=== PATIENT | female | born 1965 | race African-American/Black ===

== ENCOUNTER 2017-10-09 19:43 | Emergency (ER) | payer OTHER ==
[~2017-10-09] VITALS: Ht 160 cm; Wt 117.9 kg
[~2017-10-09 19:43] MED LIST: ALBUTEROL SULF8.5 GM INH; ATARAX50 MG ORAL; AZMACORT PO; CLINDAMYCIN HC150 MG ORAL; COUMADIN2.5 MG ORAL; CYCLOBENZAPRINE10 MG ORAL; DOXYCYCLINE HY100 M6 PO; FUROSEMIDE20 M1 ORAL; K-DUR20 MEQ ORAL; LOVENOX10 MG SUBQ; NORCO 5-325 TA1 EACH ORAL; PREDNISONE2.5 MG ORAL; SILVADENE CREAM50 GM TOP; SOMA350 MG PO; VICODIN ES 7.51 EAC1 ORAL; VITAMIN E100 UNIT ORAL; [UNRECOGNIZED DRUG - OTHER] PO
[2017-10-09] MEDS ORDERED: Sodium Chloride 500ML 500 ML IV ONE (20:07)
[2017-10-09] MEDS ORDERED: Morphine Sulfate 4mg/ml Inj IVP ONE ×2 (20:15→21:30)
[2017-10-09 21:07] LABS: BASOPHILS % (AUTO) 1.5 % (0.0-2.0); EOSINOPHILS % (AUTO) 1.8 % (0.0-3.0); HEMATOCRIT 38.8 % (37.0-47.0); HEMOGLOBIN 10.6 G/DL (12.0-16.0); LYMPHOCYTES % (AUTO) 21.1 % (20.0-45.0); MEAN CORPUSCULAR VOLUME 85 FL (80-99); MONOCYTES % (AUTO) 5.5 % (1.0-10.0); NEUTROPHILS % (AUTO) 70.1 % (45.0-75.0); PLATELET COUNT 341 K/UL (150-450); RED BLOOD COUNT 4.58 M/UL (4.20-5.40); WHITE BLOOD COUNT 7.7 K/UL (4.8-10.8)
[2017-10-09 21:23] LABS: ANION GAP 9 mmol/L (5-15); BLOOD UREA NITROGEN 17 mg/dL (7-18); CALCIUM 9.9 MG/DL (8.5-10.1); CARBON DIOXIDE 24 MMOL/L (21-32); CHLORIDE 100 MMOL/L (98-107); CREATININE 0.9 MG/DL (0.55-1.30); INR 0.9 (0.9-1.1); POTASSIUM 3.6 MMOL/L (3.5-5.1); SODIUM 133 MMOL/L (136-145)
[2017-10-09 21:57] LABS: ALANINE AMINOTRANSFERASE 17 U/L (12-78); ALBUMIN 3.8 G/DL (3.4-5.0); ALBUMIN/GLOBULIN RATIO 0.7 (1.0-2.7); ALKALINE PHOSPHATASE 84 U/L (46-116); ASPARTATE AMINO TRANSFERASE 13 U/L (15-37); BILIRUBIN,TOTAL 0.3 MG/DL (0.2-1.0); CKMB 0.5 NG/ML (0.0-3.6); CREATINE KINASE 46 U/L (26-308)
--- NOTE | 2017-10-09 22:32 | Emergency Room Report ---
History of Present Illness General Chief Complaint: Abdominal Pain Source: Patient (ISH BARKLEY M.D.) Present Illness HPI 52-year-old female presents ED complaining of abdominal pain and back pain starting 7 hours ago. Notes pain to right upper quadrant radiating to the back. 10/, sharp. Patient also complaining of shortness of breath. Patient has history of lupus and history of PE. Denies any chest pain. Denies any fevers chills. Denies nausea or vomiting. No other aggravating or leading factors. Denies any other associated symptoms (ISH BARKLEY M.D.) Allergies: Coded Allergies: PENICILLINS (Verified Allergy, Severe, Shortness of Breath, 10/09/17) Patient History Past Medical History: asthma, other - lupus Pertinent Family History: none Social History: Denies: smoking, alcohol use, drug use Last Menstrual Period: now Now: No Immunizations: UTD Reviewed Nursing Documentation: PMH: Agreed, PSxH: Agreed (ISH BARKLEY M.D.) Nursing Documentation-PMH Past Medical History: No History, Except For Hx Cardiac Problems: No Hx Asthma: Yes Hx Neurological Problems: Yes - SLE (ISH BARKLEY M.D.) Review of Systems All Other Systems: negative except mentioned in HPI (ISH BARKLEY M.D.) Physical Exam Vital Signs Date Time Temp Pulse Resp B/P (MAP) Pulse Ox O2 Delivery O2 Flow Rate FiO2 10/09/17 19:48 97.9 77 16 134/72 100 Sp02 EP Interpretation: reviewed, normal General Appearance: alert, GCS 15, non-toxic, moderate distress, obese Head: normocephalic, atraumatic Eyes: bilateral eye normal inspection, bilateral eye PERRL ENT: hearing grossly normal, normal pharynx, no angioedema, normal voice Neck: full range of motion, supple/symm/no masses Respiratory: chest non-tender, lungs clear, normal breath sounds, speaking full sentences Cardiovascular #1: regular rate, rhythm, no edema Cardiovascular #2: 2+ carotid (R), 2+ carotid (L), 2+ radial (R), 2+ radial (L) , 2+ dorsalis pedis (R), 2+ dorsalis pedis (L) Gastrointestinal: normal bowel sounds, soft, non-distended, no guarding, no rebound, tenderness - RUQ Rectal: deferred Genitourinary: normal inspection, no CVA tenderness Musculoskeletal: back normal, gait/station normal, normal range of motion, non- tender Neurologic: alert, oriented x3, responsive, motor strength/tone normal, sensory intact, speech normal Psychiatric: judgement/insight normal, memory normal, mood/affect normal, no suicidal/homicidal ideation Reflexes: 3+ bicep (R), 3+ bicep (L), 3+ tricep (R), 3+ tricep (L), 3+ knee (R) , 3+ knee (L) Skin: normal color, no rash, warm/dry, well hydrated Lymphatic: no adenopathy (ISH BARKLEY M.D.) Medical Decision Making Labs Test 10/09/17 20:54 White Blood Count 7.7 K/UL (4.8-10.8) Red Blood Count 4.58 M/UL (4.20-5.40) Hemoglobin 10.6 G/DL (12.0-16.0) Hematocrit 38.8 % (37.0-47.0) Mean Corpuscular Volume 85 FL (80-99) Mean Corpuscular Hemoglobin 23.2 PG (27.0-31.0) Mean Corpuscular Hemoglobin Concent 27.4 G/DL (32.0-36.0) Red Cell Distribution Width 17.0 % (11.6-14.8) Platelet Count 341 K/UL (150-450) Mean Platelet Volume 7.0 FL (6.5-10.1) Neutrophils (%) (Auto) 70.1 % (45.0-75.0) Lymphocytes (%) (Auto) 21.1 % (20.0-45.0) Monocytes (%) (Auto) 5.5 % (1.0-10.0) Eosinophils (%) (Auto) 1.8 % (0.0-3.0) Basophils (%) (Auto) 1.5 % (0.0-2.0) Prothrombin Time 9.5 SEC (9.30-11.50) Prothromb Time International Ratio 0.9 (0.9-1.1) Activated Partial Thromboplast Time 25 SEC (23-33) Sodium Level 133 MMOL/L (136-145) Potassium Level 3.6 MMOL/L (3.5-5.1) Chloride Level 100 MMOL/L (98-107) Carbon Dioxide Level 24 MMOL/L (21-32) Anion Gap 9 mmol/L (5-15) Blood Urea Nitrogen 17 mg/dL (7-18) Creatinine 0.9 MG/DL (0.55-1.30) Estimat Glomerular Filtration Rate > 60 mL/min (>60) Glucose Level 104 MG/DL (74-106) Calcium Level 9.9 MG/DL (8.5-10.1) Total Bilirubin 0.3 MG/DL (0.2-1.0) Aspartate Amino Transf (AST/SGOT) 13 U/L (15-37) Alanine Aminotransferase (ALT/SGPT) 17 U/L (12-78) Alkaline Phosphatase 84 U/L (46-116) Total Creatine Kinase 46 U/L (26-308) Creatine Kinase MB 0.5 NG/ML (0.0-3.6) Creatine Kinase MB Relative Index 1.0 Troponin I 0.000 ng/mL (0.000-0.056) Pro-B-Type Natriuretic Peptide 17 pg/mL (0-125) Total Protein 9.1 G/DL (6.4-8.2) Albumin 3.8 G/DL (3.4-5.0) Globulin 5.3 g/dL Albumin/Globulin Ratio 0.7 (1.0-2.7) Lipase 190 U/L (73-393) (ISH BARKLEY M.D.) ER Course CTA CHEST: CTA ABDOMEN & PELVIS With Contrast: Comparison CTA chest 12/09/13. Normal caliber aorta without evidence for dissection. Cholelithiasis within distended gallbladder. Consider correlation with ultrasound, as indicated. Limited for small peripheral PE. No central PE. Mild atelectasis. No infiltrate seen. Incidental findings include enlarged fibroid uterus. Patient was tx with morphine, has been stable during ED stay labs unremarkable Will dc home with motrin and OBGYN follow up for large fibroid uterus Laboratory Tests Test 10/09/17 20:54 White Blood Count 7.7 K/UL (4.8-10.8) Red Blood Count 4.58 M/UL (4.20-5.40) Hemoglobin 10.6 G/DL (12.0-16.0) L Hematocrit 38.8 % (37.0-47.0) Mean Corpuscular Volume 85 FL (80-99) Mean Corpuscular Hemoglobin 23.2 PG (27.0-31.0) L Mean Corpuscular Hemoglobin Concent 27.4 G/DL (32.0-36.0) L Red Cell Distribution Width 17.0 % (11.6-14.8) H Platelet Count 341 K/UL (150-450) Mean Platelet Volume 7.0 FL (6.5-10.1) Neutrophils (%) (Auto) 70.1 % (45.0-75.0) Lymphocytes (%) (Auto) 21.1 % (20.0-45.0) Monocytes (%) (Auto) 5.5 % (1.0-10.0) Eosinophils (%) (Auto) 1.8 % (0.0-3.0) Basophils (%) (Auto) 1.5 % (0.0-2.0) Prothrombin Time 9.5 SEC (9.30-11.50) Prothrombin Time INR 0.9 (0.9-1.1) PTT 25 SEC (23-33) Sodium Level 133 MMOL/L (136-145) L Potassium Level 3.6 MMOL/L (3.5-5.1) Chloride Level 100 MMOL/L (98-107) Carbon Dioxide Level 24 MMOL/L (21-32) Anion Gap 9 mmol/L (5-15) Blood Urea Nitrogen 17 mg/dL (7-18) Creatinine 0.9 MG/DL (0.55-1.30) Estimate Glomerular Filtration Rate > 60 mL/min (>60) Glucose Level 104 MG/DL (74-106) Calcium Level 9.9 MG/DL (8.5-10.1) Total Bilirubin 0.3 MG/DL (0.2-1.0) Aspartate Amino Transferase (AST) 13 U/L (15-37) L Alanine Aminotransferase (ALT) 17 U/L (12-78) Alkaline Phosphatase 84 U/L (46-116) Total Creatine Kinase 46 U/L (26-308) Creatine Kinase MB 0.5 NG/ML (0.0-3.6) Creatine Kinase MB Relative Index 1.0 Troponin I 0.000 ng/mL (0.000-0.056) Pro-B-Type Natriuretic Peptide 17 pg/mL (0-125) Total Protein 9.1 G/DL (6.4-8.2) H Albumin 3.8 G/DL (3.4-5.0) Globulin 5.3 g/dL Albumin/Globulin Ratio 0.7 (1.0-2.7) L Lipase 190 U/L (73-393) (Jose Molina M.D.) EKG Diagnostic Results Rate: normal Rhythm: NSR ST Segments: no acute changes ASA given to the pt in ED: No (ISH BARKLEY M.D.) Rhythm Strip Diag. Results EP Interpretation: yes Rhythm: NSR, no PVC's, no ectopy (ISH BARKLEY M.D.) Last Vital Signs Date Time Temp Pulse Resp B/P (MAP) Pulse Ox O2 Delivery O2 Flow Rate FiO2 10/09/17 20:56 97.8 10/09/17 19:48 77 16 134/72 100 Status: improved (ISH BARKLEY M.D.) ISH BARKLEY M.D. Oct 09, 2017 22:32 Jose Molina M.D. Oct 10, 2017 02:39
[2017-10-09 23:00] VITALS: BP 127/73
[2017-10-10] MEDS ORDERED: Morphine Sulfate 4mg/ml Inj IVP ONE (00:45)
[2017-10-10 01:00] VITALS: BP 119/73
[2017-10-10 03:45] VITALS: BP 117/68
[2017-10-10] MEDS ORDERED: TYLENOL EXTRA500 MG ORAL (03:58)
[2017-10-10 04:00] VITALS: BP 117/68
--- NOTE | 2017-10-10 09:15 | Diagnostic Imaging Report ---
Indication: Chest and abdominal pain Technique: Continuous helical transaxial imaging of the chest, abdomen and pelvis was obtained from the thoracic inlet to the pubic symphysis during rapid intravenous contrast administration. Arterial phase of enhancement obtained. Coronal 2-D reformats were also obtained and maximum intensity projection images in multiple planes. Study obtained in a Siemens sensation [address] Total Dose length Product (DLP): [address] Dose Index Volume (CTDIvol): 0.15, 8.11, 16.22, 17.67 mGy Comparison: CTA chest 12/02/1713 Findings: Thoracic and abdominal aorta appear normal. There is no dissection or aneurysm. Common origin brachiocephalic artery and left common carotid artery noted. Left subclavian artery noted. These vessels are widely patent. Celiac artery, SMA, single bilateral renal arteries and inferior mesenteric artery appear widely patent. Iliac and common femoral artery appear normal. The lungs are clear. The heart is unremarkable in appearance. Pulmonary artery is unremarkable. No pleural or pericardial effusion identified. Gallstone noted. No free fluid or free air identified. There is no evidence of bowel obstruction. Uterus is enlarged and heterogeneous likely on the basis of underlying fibroids. IMPRESSION: Negative evaluation of the thoracic and abdominal aorta and major branches. Incidental findings including gallstones, fibroid uterus demonstrated. [facility] has communicated the preliminary results to the Emergency Department. Their findings are largely concordant with this report. The CT scanner at [facility] is accredited by the [employer] and the scans are performed using dose optimization techniques as appropriate to a performed exam including Automatic Exposure control.
--- NOTE | 2017-10-21 00:11 | Cardiology Report ---
APPROVED REPORT EKG Measurement Heart [id number] Normal sinus rhythm with sinus arrhythmia Normal ECG
== END 2017-10-10 04:00 | disposition home or self-care (01) ==
LOC: EMR 20:30
DX: R10.9 Unspecified abdominal pain (principal); M54.9 Dorsalgia, unspecified; J45.909 Unspecified asthma, uncomplicated; M32.9 Systemic lupus erythematosus, unspecified; D25.9 Leiomyoma of uterus, unspecified; K80.20 Calculus of gallbladder without cholecystitis without obstruction; Z88.0 Allergy status to penicillin
CPT/HCPCS: 36415; 71275; 74174; 80053; 82550; 82553; 83690; 83880; 84484; 85025; 85610; 85730; 93005; 96361; 96374; 96376; 99284; J2270; J7040; Q9967

== ENCOUNTER 2018-12-24 10:38 | Emergency (ER) | payer OTHER ==
[~2018-12-24] VITALS: Ht 160 cm; Wt 115.7 kg
[~2018-12-24 10:38] MED LIST changes: +TYLENOL EXTRA500 MG ORAL
[2018-12-24 10:55] VITALS: BP 129/100
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
[2018-12-24] MEDS ORDERED: Solu-MEDROL 125mg Inj IVP ONE (11:00)
[2018-12-24] MEDS ORDERED: Isovue-370 150ml vial INJ PRN (11:00)
[2018-12-24] MEDS ORDERED: Morphine Sulfate 4mg/ml Inj (IV USE ONLY) IVP ONE ×2 (11:00→13:00)
[2018-12-24] MEDS: Ipratropium 0.02% Inh Soln 2.5ml UD HHN SCH ×3 (11:04→11:30)
[2018-12-24] MEDS: Albuterol ud Inhalation HHN SCH ×3 (11:04→11:30)
--- NOTE | 2018-12-24 11:10 | NUR ---
ED Nurse Note: blood sent to lab
[2018-12-24 11:31] LABS: BASOPHILS % (AUTO) 1.8 % (0.0-2.0); EOSINOPHILS % (AUTO) 5.2 % (0.0-3.0); HEMATOCRIT 37.2 % (37.0-47.0); HEMOGLOBIN 11.2 G/DL (12.0-16.0); LYMPHOCYTES % (AUTO) 22.5 % (20.0-45.0); MEAN CORPUSCULAR VOLUME 86 FL (80-99); MONOCYTES % (AUTO) 7.4 % (1.0-10.0); PLATELET COUNT 247 K/UL (150-450); RED BLOOD COUNT 4.33 M/UL (4.20-5.40); RED CELL DISTRIBUTION WIDTH 17.3 % (11.6-14.8); WHITE BLOOD COUNT 4.9 K/UL (4.8-10.8)
[2018-12-24 11:51] LABS: ANION GAP 10 mmol/L (5-15); BLOOD UREA NITROGEN 11 mg/dL (7-18); CALCIUM 10.4 MG/DL (8.5-10.1); CARBON DIOXIDE 23 MMOL/L (21-32); CHLORIDE 104 MMOL/L (98-107); CREATININE 0.8 MG/DL (0.55-1.30); POTASSIUM 3.7 MMOL/L (3.5-5.1); SODIUM 137 MMOL/L (136-145)
[2018-12-24 12:00] VITALS: BP 129/100
[2018-12-24 12:06] LABS: ALANINE AMINOTRANSFERASE 32 U/L (12-78); ALBUMIN 3.2 G/DL (3.4-5.0); ALBUMIN/GLOBULIN RATIO 0.7 (1.0-2.7); ALKALINE PHOSPHATASE 77 U/L (46-116); ASPARTATE AMINO TRANSFERASE 15 U/L (15-37); BILIRUBIN,TOTAL 0.3 MG/DL (0.2-1.0); CKMB 0.5 NG/ML (0.0-3.6); CREATINE KINASE 50 U/L (26-308)
--- NOTE | 2018-12-24 12:10 | NUR ---
ED Nurse Note: patient went down for CT
--- NOTE | 2018-12-24 12:22 | NUR ---
ED Nurse Note: patient is back, no acute disstress noticed
--- NOTE | 2018-12-24 12:45 | Diagnostic Imaging Report ---
ndication: Chest pain Technique: IV administration nonionic contrast. Spiral acquisitions obtained from the lung bases to the lung apices. Multiplanar and 3-D reconstructions were generated. Total dose length product 1179.3 mGycm. CTDIvol(s) 34.86 mGy. Dose reduction achieved using automated exposure control Comparison: 10/09/2017 Findings: Exam is limited due to suboptimal arterial bolus quality, respiratory motion artifact. This precludes exclusion of small peripheral pulmonary emboli. No large central pulmonary emboli are demonstrated. No evidence of pulmonary arterial dilatation or right ventricular dilatation. The heart size is borderline enlarged. No thoracic aortic aneurysm or dissection. There is common origin of the left common carotid and right brachiocephalic artery, otherwise unremarkable great neck vessels. The lungs demonstrate posterior dependent atelectatic changes. Some very faint groundglass opacity is seen in the left upper lobe and bilateral lower lobes. This is a new finding since the prior study. No pleural fluid is demonstrated. No dense consolidation, no definite nodules or masses. No pericardial effusion. No mediastinal or hilar mass or adenopathy. No axillary or chest wall mass or adenopathy. Unremarkable esophagus. The included upper abdominal anatomy demonstrates gallstones. This was also described previously. Impression: Limited assessment of the pulmonary arteries due to suboptimal contrast bolus and respiratory motion artifact. No gross large vessel central pulmonary emboli demonstrated Bilateral basilar dependent atelectatic changes. Left upper lobe and bilateral basilar groundglass opacities may reflect very mild pulmonary edema Borderline cardiomegaly Cholelithiasis, also described previously The CT scanner at [facility] is accredited by the [employer] and the scans are performed using protocols designed to limit radiation exposure to as low as reasonably achievable to attain images of sufficient resolution adequate for diagnostic evaluation.
[2018-12-24] MEDS ORDERED: Albuterol ud Inhalation HHN ONE (13:00)
[2018-12-24] MEDS ORDERED: Ipratropium 0.02% Inh Soln 2.5ml UD HHN ONE (13:00)
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
[2018-12-24 14:43] VITALS: BP 130/80
[2018-12-24] MEDS ORDERED: COLACE100 MG ORAL (14:51)
[2018-12-24] MEDS ORDERED: ASPIRIN-LOW81 MG ORAL (14:51)
[2018-12-24] MEDS ORDERED: ALBUTEROL2.5 MG/3 M HHN (14:51)
[2018-12-24] MEDS ORDERED: PREDNISONE20 MG ORAL (14:51)
[2018-12-24] MEDS ORDERED: PEPCID AC20 M2 PO (14:51)
[2018-12-24] MEDS ORDERED: ALBUTEROL SULF8.5 GM INH (14:51)
[2018-12-24] MEDS ORDERED: FUROSEMIDE40 MG ORAL (14:51)
[2018-12-24] MEDS ORDERED: IPRATROPIU0.2 MG/1 M HHN (14:51)
[2018-12-24] MEDS ORDERED: HYDROXYCHLOROQ200 M1 PO (14:51)
[2018-12-24] MEDS ORDERED: COUMADIN5 MG ORAL (14:51)
[2018-12-24] MEDS ORDERED: CYCLOBENZAPRINE10 MG ORAL (14:51)
[2018-12-24] MEDS ORDERED: ATORVASTATIN CA10 MG ORAL (14:51)
[2018-12-24 15:19] VITALS: BP 134/76
--- NOTE | 2018-12-24 15:21 | NUR ---
ER DISCHARGE NOTE: Patient is cleared to be discharged per ERMD, pt is aox4, on room air, with stable vital signs. pt was given dc and prescription instructions, pt was able to verbalize understanding, pt id band and iv site removed without complications. pt is able to ambulate with steady gait. pt took all belongings.
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
== END 2018-12-24 15:40 | disposition home or self-care (01) ==
LOC: EMR 11:12
DX: J45.901 Unspecified asthma with (acute) exacerbation (principal); R07.9 Chest pain, unspecified; M32.9 Systemic lupus erythematosus, unspecified; Z88.0 Allergy status to penicillin
CPT/HCPCS: 36415; 70486; 71275; 80053; 82550; 82553; 83880; 84484; 85025; 93005; 94640; 96374; 96375; 96376; 99284; J2270; J2930; Q9967

== ENCOUNTER 2019-05-18 16:38 | Emergency (ER) | payer OTHER ==
[~2019-05-18] VITALS: Ht 167.6 cm; Wt 119.3 kg
[~2019-05-18 16:38] MED LIST changes: +ALBUTEROL2.5 MG/3 M HHN; +ASPIRIN-LOW81 MG ORAL; +ATORVASTATIN CA10 MG ORAL; +COLACE100 MG ORAL; +COUMADIN5 MG ORAL; +FUROSEMIDE40 MG ORAL; +HYDROXYCHLOROQ200 M1 PO; +IPRATROPIU0.2 MG/1 M HHN; +PEPCID AC20 M2 PO; +PREDNISONE20 MG ORAL
--- NOTE | 2019-05-18 17:02 | NUR ---
Note undone in EDM - 05/18/19 at 1704 by JARROD ED Nurse Note: PT WALKED IN TO ER TODAY FROM HOME. AOX4. PT C/O SOB X 3 DAYS ALONG WITH BILATERAL LEG PAIN BEHIND CALF, PAIN 10/10 X 3 DAYS AGO. PT STATES SHE HAS HX OF PE AND DVT IN RIGHT LEG. AT BEDSIDE, PT ABLE TO SPEAK IN FULL SENTENCES. NO SIGNS OF RESPIRATORY DISTRESS, RETRACTIONS OR ACCESSORY MUSCLE USE NOTED. FULL ROM OF LOWER EXTREMITIES, CIRCULATION AND SENSATION INTACT, MUSCLE STRENGHT 5/5.
--- NOTE | 2019-05-18 17:02 | NUR ---
ED Nurse Note: PT WALKED IN TO ER TODAY FROM HOME. AOX4. PT C/O SOB X 3 DAYS ALONG WITH BILATERAL LEG PAIN BEHIND CALF, PAIN 10/10 X 3 DAYS AGO. PT STATES SHE HAS HX OF PE AND DVT IN RIGHT LEG. AT BEDSIDE, PT ABLE TO SPEAK IN FULL SENTENCES. NO SIGNS OF RESPIRATORY DISTRESS, RETRACTIONS OR ACCESSORY MUSCLE USE NOTED. FULL ROM OF LOWER EXTREMITIES, CIRCULATION AND SENSATION INTACT, MUSCLE STRENGHT 5/5. HR 86, BP 118/61, NORMAL SINUS RHYTHM ON SUPERINTENDENT FACTORY.
[2019-05-18 17:04] VITALS: BP 118/61
--- NOTE | 2019-05-18 17:12 | NUR ---
ED Nurse Note: RT CALLED FOR BREATHING TX.
[2019-05-18] MEDS ORDERED: Solu-MEDROL 125mg Inj IVP ONE (17:15)
[2019-05-18] MEDS ORDERED: Morphine Sulfate 4mg/ml Inj (IV USE ONLY) IVP ONE ×2 (17:30→19:15)
[2019-05-18] MEDS: Ipratropium 0.02% Inh Soln 2.5ml UD HHN SCH ×3 (17:36→18:12)
[2019-05-18] MEDS: Albuterol ud Inhalation HHN SCH ×3 (17:36→18:11)
[2019-05-18 18:10] LABS: BASOPHILS % (AUTO) 1.9 % (0.0-2.0); EOSINOPHILS % (AUTO) 4.1 % (0.0-3.0); HEMOGLOBIN 10.3 G/DL (12.0-16.0); LYMPHOCYTES % (AUTO) 26.3 % (20.0-45.0); MEAN CORPUSCULAR VOLUME 82 FL (80-99); MONOCYTES % (AUTO) 5.2 % (1.0-10.0); NEUTROPHILS % (AUTO) 62.6 % (45.0-75.0); PLATELET COUNT 183 K/UL (150-450); RED BLOOD COUNT 4.13 M/UL (4.20-5.40); WHITE BLOOD COUNT 5.1 K/UL (4.8-10.8)
[2019-05-18 18:10] LABS: INR 0.9 (0.9-1.1)
--- NOTE | 2019-05-18 18:11 | NUR ---
ED Nurse Note: ULTRASOUND AT BEDSIDE.
[2019-05-18 18:22] LABS: ANION GAP 10 mmol/L (5-15); BLOOD UREA NITROGEN 14 mg/dL (7-18); CALCIUM 10.8 MG/DL (8.5-10.1); CARBON DIOXIDE 24 MMOL/L (21-32); CHLORIDE 108 MMOL/L (98-107); CREATININE 0.8 MG/DL (0.55-1.30); POTASSIUM 3.8 MMOL/L (3.5-5.1); SODIUM 142 MMOL/L (136-145)
[2019-05-18 18:33] LABS: ALANINE AMINOTRANSFERASE 23 U/L (12-78); ALBUMIN 3.4 G/DL (3.4-5.0); ALBUMIN/GLOBULIN RATIO 0.7 (1.0-2.7); ALKALINE PHOSPHATASE 86 U/L (46-116); ASPARTATE AMINO TRANSFERASE 21 U/L (15-37); BILIRUBIN,TOTAL 0.3 MG/DL (0.2-1.0)
--- NOTE | 2019-05-18 18:39 | NUR ---
ED Nurse Note: URINE COLLECTED AND SENT TO LAB.
[2019-05-18 18:59] LABS: APPEARANCE,URINE CLEAR; BILIRUBIN, URINE NEGATIVE (NEGATIVE); COLOR,URINE PALE YELLOW; GLUCOSE, URINE (UA) NEGATIVE (NEGATIVE); KETONES,URINE NEGATIVE (NEGATIVE); LEUKOCYTE ESTERASE ,URINE NEGATIVE (NEGATIVE); NITRITE,URINE NEGATIVE (NEGATIVE); PH,URINE 5 (4.5-8.0); PROTEIN,URINE NEGATIVE (NEGATIVE); UROBILINOGEN,URINE NORMAL MG/DL (0.0-1.0)
--- NOTE | 2019-05-18 19:12 | NUR ---
ED Nurse Note: REPORT GIVEN TO [facility] PLUMMER.
--- NOTE | 2019-05-18 19:15 | Emergency Room Report ---
History of Present Illness General Chief Complaint: General Complaint Source: Patient Present Illness HPI 53-year-old female presents ED for evaluation. Complaining of shortness of breath. History of asthma. States that she ran out of her medications 3 days ago. Notes wheezing. Denies cough. Denies chest pain. Denies fevers or chills. Also complaining of pain to her lower legs. History of lupus. History of DVT. Takes Coumadin. States that this may be a lupus flare. No other aggravating relieving factors. Denies any other associated symptoms Allergies: Coded Allergies: PENICILLINS (Verified Allergy, Severe, Shortness of Breath, 10/09/17) Patient History Past Medical History: asthma, other - lupus Past Surgical History: none Pertinent Family History: none Social History: Denies: smoking, alcohol use, drug use Last Menstrual Period: 03/26/2019 Now: No Immunizations: UTD Reviewed Nursing Documentation: PMH: Agreed; PSxH: Agreed Nursing Documentation-PMH Past Medical History: No History, Except For Hx Cardiac Problems: No Hx Asthma: Yes Hx Neurological Problems: Yes - SLE Review of Systems All Other Systems: negative except mentioned in HPI Physical Exam Vital Signs Date Time Temp Pulse Resp B/P (MAP) Pulse Ox O2 Delivery O2 Flow Rate FiO2 05/18/19 16:49 97.9 86 20 120/81 (94) 95 Room Air 05/18/19 17:39 21 Sp02 EP Interpretation: reviewed, normal General Appearance: alert, GCS 15, non-toxic, obese Head: normocephalic, atraumatic Eyes: bilateral eye normal inspection, bilateral eye PERRL ENT: hearing grossly normal, normal pharynx, no angioedema, normal voice Neck: full range of motion, supple/symm/no masses Respiratory: chest non-tender, normal breath sounds, speaking full sentences, wheezing Cardiovascular #1: regular rate, rhythm, no edema Cardiovascular #2: 2+ carotid (R), 2+ carotid (L), 2+ radial (R), 2+ radial (L) , 2+ dorsalis pedis (R), 2+ dorsalis pedis (L) Gastrointestinal: normal bowel sounds, non tender, soft, non-distended, no guarding, no rebound Rectal: deferred Genitourinary: normal inspection, no CVA tenderness Musculoskeletal: back normal, gait/station normal, normal range of motion, swelling - bilateral lower extremities Neurologic: alert, oriented x3, responsive, motor strength/tone normal, sensory intact, speech normal Psychiatric: judgement/insight normal, memory normal, mood/affect normal, no suicidal/homicidal ideation Reflexes: 3+ bicep (R), 3+ bicep (L), 3+ tricep (R), 3+ tricep (L), 3+ knee (R) , 3+ knee (L) Skin: no rash Lymphatic: no adenopathy Medical Decision Making Diagnostic Impression: Primary Impression: Asthma exacerbation Qualified Codes: J45.901 - Unspecified asthma with (acute) exacerbation Additional Impression: Lupus ER Course Hospital Course 53 yo F presents with SOB. h/o asthma. leg pain. h/o lupus and DVT Differential diagnoses include: URI, bronchitis, asthma/COPD, pneumonia Clinical course Patient placed on stretcher. After initial history, physical exam reveals an obese female in no acute distress. Bilateral TM unremarkable. No pharyngeal erythema. No tonsillar exudates. No lymphadenopathy. wheezin bialterally. LE swelling I ordered labs, IV fluids, nebs, pain meds, chest x-ray, venous duplex Labs reviewed-no leukocytosis, hemoglobin/hematocrit stable, electrolytes okay Chest x-ray no acute process EKG - NSR, no acute ischemic changes interpreted by me venous duplex - negative for DVT Reassessment patient states pain is improved. Wheezing resolved. Reassurance given. Will discharge home with prescriptions for albuterol, prednisone, short course of [place], short course of xanax. States she has a PMD Diagnosis - asthma exacerbation, lupus Stable and discharged home with prescriptions for albuterol, prednisone, norco, xanax. Instructed to followup with PMD. Return to ED if symptoms recur or worsen Labs Test 05/18/19 17:20 05/18/19 17:31 05/18/19 18:35 White Blood Count 5.1 K/UL (4.8-10.8) Red Blood Count 4.13 M/UL (4.20-5.40) Hemoglobin 10.3 G/DL (12.0-16.0) Hematocrit 34.0 % (37.0-47.0) Mean Corpuscular Volume 82 FL (80-99) Mean Corpuscular Hemoglobin 25.0 PG (27.0-31.0) Mean Corpuscular Hemoglobin Concent 30.4 G/DL (32.0-36.0) Red Cell Distribution Width 16.0 % (11.6-14.8) Platelet Count 183 K/UL (150-450) Mean Platelet Volume 6.5 FL (6.5-10.1) Neutrophils (%) (Auto) 62.6 % (45.0-75.0) Lymphocytes (%) (Auto) 26.3 % (20.0-45.0) Monocytes (%) (Auto) 5.2 % (1.0-10.0) Eosinophils (%) (Auto) 4.1 % (0.0-3.0) Basophils (%) (Auto) 1.9 % (0.0-2.0) Sodium Level 142 MMOL/L (136-145) Potassium Level 3.8 MMOL/L (3.5-5.1) Chloride Level 108 MMOL/L (98-107) Carbon Dioxide Level 24 MMOL/L (21-32) Anion Gap 10 mmol/L (5-15) Blood Urea Nitrogen 14 mg/dL (7-18) Creatinine 0.8 MG/DL (0.55-1.30) Estimat Glomerular Filtration Rate > 60 mL/min (>60) Glucose Level 100 MG/DL (74-106) Calcium Level 10.8 MG/DL (8.5-10.1) Total Bilirubin 0.3 MG/DL (0.2-1.0) Aspartate Amino Transf (AST/SGOT) 21 U/L (15-37) Alanine Aminotransferase (ALT/SGPT) 23 U/L (12-78) Alkaline Phosphatase 86 U/L (46-116) Troponin I 0.000 ng/mL (0.000-0.056) Pro-B-Type Natriuretic Peptide 21 pg/mL (0-125) Total Protein 8.1 G/DL (6.4-8.2) Albumin 3.4 G/DL (3.4-5.0) Globulin 4.7 g/dL Albumin/Globulin Ratio 0.7 (1.0-2.7) Prothrombin Time 10.1 SEC (9.30-11.50) Prothromb Time International Ratio 0.9 (0.9-1.1) Activated Partial Thromboplast Time 26 SEC (23-33) Urine Color Pale yellow Urine Appearance Clear Urine pH 5 (4.5-8.0) Urine Specific [place] 1.020 (1.005-1.035) Urine Protein Negative (NEGATIVE) Urine Glucose (UA) Negative (NEGATIVE) Urine Ketones Negative (NEGATIVE) Urine Blood Negative (NEGATIVE) Urine Nitrite Negative (NEGATIVE) Urine Bilirubin Negative (NEGATIVE) Urine Urobilinogen Normal MG/DL (0.0-1.0) Urine Leukocyte Esterase Negative (NEGATIVE) EKG Diagnostic Results Rate: normal Rhythm: NSR ST Segments: no acute changes ASA given to the pt in ED: No Rhythm Strip Diag. Results EP Interpretation: yes Rhythm: NSR, no PVC's, no ectopy Chest X-Ray Diagnostic Results Chest X-Ray Diagnostic Results : Chest X-Ray Ordered: Yes # of Views/Limited/Complete: 1 View Indication: Shortness of Breath EP Interpretation: Yes Interpretation: no consolidation, no effusion, no pneumothorax, no acute cardiopulmonary disease Impression: No acute disease Electronically Signed by: Electronically signed by Ramon Phelps MD CT/MRI/US Diagnostic Results CT/MRI/US Diagnostic Results : Imaging Test Ordered: venous duplex\ Impression no evidence of DVT bilateral LEs Last Vital Signs Date Time Temp Pulse Resp B/P (MAP) Pulse Ox O2 Delivery O2 Flow Rate FiO2 05/18/19 18:57 91 20 99 Room Air 21 05/18/19 17:04 98.1 118/61 Status: improved Disposition: HOME, SELF-CARE Condition: Stable Scripts Alprazolam* (XANAX*) 1 Mg Tablet 3 TAB ORAL TID PRN for PRN Agitation/Anxiety for 3 Days, TAB 0 Refills Prov: Ramon Phelps MD 05/18/19 Hydrocodone Bit/Acetaminophen 5-325* (NORCO 5-325*) 1 Each Tablet 1 TAB ORAL Q6H PRN for For Pain, #12 TAB 0 Refills Prov: Ramon Phelps MD 05/18/19 Prednisone* (PREDNISONE*) 20 Mg Tablet 40 MG ORAL DAILY, #10 TAB Prov: Ramon Phelps MD 05/18/19 Albuterol Sulfate* (ALBUTEROL SULFATE HHN*) 2.5 Mg/3 Ml Vial.neb 2.5 MG HHN Q4H PRN for Shortness of Breath, #25 VIAL Prov: Ramon Phelps MD 05/18/19 Albuterol Sulfate* (ALBUTEROL SULFATE MDI*) 8.5 Gm Hfa.aer.ad 2 PUFF INH Q6H, #1 EA 0 Refills Prov: Ramon Phelps MD 05/18/19 Referrals: [facility],REFERR[facility] (PCP) Ramon Phelps MD May 18, 2019 19:15
[2019-05-18] MEDS ORDERED: ALBUTEROL SULF8.5 GM INH (19:45)
[2019-05-18] MEDS ORDERED: XANAX1 MG ORAL (19:45)
[2019-05-18] MEDS ORDERED: NORCO 5-325 TA1 EACH ORAL (19:45)
[2019-05-18] MEDS ORDERED: ALBUTEROL2.5 MG/3 M HHN (19:45)
[2019-05-18] MEDS ORDERED: PREDNISONE20 MG ORAL (19:45)
[2019-05-18 20:30] VITALS: BP 120/68
--- NOTE | 2019-05-18 20:30 | NUR ---
ER Nurse Note: Pt seen, treated, medically cleared for discharge by ERMD. Discharge instuctions and prescriptions given with repeat verbalization by pt. Emphasized to follow up with primay care provider; take whole course of medication. Explained each medication. All orders completed per ERMD orders. Pt a&ox4, VSS, no signs of distress. ID band removed. IV removed; site clean and bandaged. All questions answered per pt's questions. Pt left with all belongings, left with own transportation.
--- NOTE | 2019-05-18 20:50 | Diagnostic Imaging Report ---
US VENOUS BILATERAL LOWER EXTREMITIES: No DVT.
--- NOTE | 2019-05-19 18:20 | Cardiology Report ---
APPROVED REPORT EKG Measurement Heart [id number] Normal sinus rhythm Cannot rule out Anterior infarct, age undetermined Abnormal ECG
== END 2019-05-18 20:30 | disposition home or self-care (01) ==
LOC: EMR 17:10
DX: J45.901 Unspecified asthma with (acute) exacerbation (principal); M32.9 Systemic lupus erythematosus, unspecified; Z88.0 Allergy status to penicillin; M79.605 Pain in left leg; M79.604 Pain in right leg; Z86.718 Personal history of other venous thrombosis and embolism; Z79.01 Long term (current) use of anticoagulants
CPT/HCPCS: 36415; 71045; 80053; 81003; 83880; 84484; 85025; 85610; 85730; 93005; 93970; 94640; 94664; 96374; 96375; 96376; 99284; J2270; J2930; J7040

== ENCOUNTER 2019-07-16 18:46 | Emergency (ER) | payer OTHER ==
[~2019-07-16] VITALS: Ht 167.6 cm; Wt 120.2 kg
[~2019-07-16 18:46] MED LIST changes: +XANAX1 MG ORAL
--- NOTE | 2019-07-16 19:15 | NUR ---
ED Nurse Note: Pt ambulated to ED from home c/o vaginal skin burning when she urinates, reports "it feels different than a UTI". Pt presents with pain and multiple bruises after falling down 10 stairs on friday, pt reports hitting head and LOC. Pt is A&Ox4. VSS
[2019-07-16 19:17] VITALS: BP 107/62
[2019-07-16] MEDS ORDERED: Morphine Sulfate 4mg/ml Inj (IV USE ONLY) IVP ONE (19:30)
[2019-07-16] MEDS ORDERED: Ascorbic Acid 500mg tab ORAL ONE (19:30)
[2019-07-16 20:07] LABS: BASOPHILS % (AUTO) 1.2 % (0.0-2.0); EOSINOPHILS % (AUTO) 3.7 % (0.0-3.0); HEMATOCRIT 38.5 % (37.0-47.0); HEMOGLOBIN 12.1 G/DL (12.0-16.0); LYMPHOCYTES % (AUTO) 23.2 % (20.0-45.0); MEAN CORPUSCULAR VOLUME 86 FL (80-99); MONOCYTES % (AUTO) 5.8 % (1.0-10.0); PLATELET COUNT 300 K/UL (150-450); RED BLOOD COUNT 4.48 M/UL (4.20-5.40); RED CELL DISTRIBUTION WIDTH 15.2 % (11.6-14.8); WHITE BLOOD COUNT 7.1 K/UL (4.8-10.8)
[2019-07-16 20:18] LABS: INR 0.9 (0.9-1.1)
[2019-07-16 20:20] LABS: ANION GAP 7 mmol/L (5-15); BLOOD UREA NITROGEN 14 mg/dL (7-18); CALCIUM 10.6 MG/DL (8.5-10.1); CARBON DIOXIDE 27 MMOL/L (21-32); CHLORIDE 107 MMOL/L (98-107); CREATININE 1.1 MG/DL (0.55-1.30); POTASSIUM 3.3 MMOL/L (3.5-5.1); SODIUM 141 MMOL/L (136-145)
[2019-07-16 20:32] LABS: ALANINE AMINOTRANSFERASE 29 U/L (12-78); ALBUMIN 3.2 G/DL (3.4-5.0); ALBUMIN/GLOBULIN RATIO 0.7 (1.0-2.7); ALKALINE PHOSPHATASE 90 U/L (46-116); ASPARTATE AMINO TRANSFERASE 14 U/L (15-37); BILIRUBIN,TOTAL 0.3 MG/DL (0.2-1.0)
[2019-07-16] MEDS ORDERED: HYDROcodone/Acetamin 5/325 tab ORAL ONE (20:45)
[2019-07-16] MEDS ORDERED: Albuterol/Ipratropium 3ml neb HHN ONE (21:00)
[2019-07-16] MEDS ORDERED: Omnipaue 350mg/ml 100ml vial INJ PRN (21:15)
--- NOTE | 2019-07-16 21:43 | Emergency Room Report ---
History of Present Illness General Chief Complaint: General Complaint Source: Patient Present Illness HPI Patient is a 54-year-old female presents after increased generalized pain and chest discomfort after recent fall. Patient reports having fallen down multiple stairs several days prior to arrival. She reports having increased pain to her low back as well as to her chest. She reports having increased painful urination for the past few days. She denies any fever. She reports taking Coumadin due to lupus anticoagulant. She also noted some increased swelling to both legs. Allergies: Coded Allergies: PENICILLINS (Verified Allergy, Severe, Shortness of Breath, 10/09/17) Patient History Past Medical History: see triage record Last Menstrual Period: 06/09/19 Now: No Reviewed Nursing Documentation: PMH: Agreed; PSxH: Agreed Nursing Documentation-PMH Past Medical History: No History, Except For Hx Cardiac Problems: No Hx Asthma: Yes Hx Neurological Problems: Yes - SLE Review of Systems All Other Systems: negative except mentioned in HPI Physical Exam Vital Signs Date Time Temp Pulse Resp B/P (MAP) Pulse Ox O2 Delivery O2 Flow Rate FiO2 07/16/19 18:52 97.7 100 20 107/62 (77) 97 Room Air 07/16/19 21:28 21 Sp02 EP Interpretation: reviewed, normal General Appearance: normal inspection, well appearing, no apparent distress, alert, GCS 15 Head: atraumatic ENT: normal ENT inspection, hearing grossly normal, normal voice Neck: normal inspection, full range of motion, supple, no bony tend Respiratory: normal inspection, lungs clear, normal breath sounds, no respiratory distress, no retraction, no wheezing Cardiovascular #1: regular rate, rhythm, no edema Gastrointestinal: normal inspection, normal bowel sounds, non tender, soft, no guarding, no hernia Genitourinary: no CVA tenderness Musculoskeletal: normal inspection, back normal, normal range of motion Neurologic: normal inspection, alert, oriented x3, responsive, mushroom press operator III-XII nml as tested, speech normal Psychiatric: normal inspection, judgement/insight normal, mood/affect normal Medical Decision Making Diagnostic Impression: Primary Impression: Fall Additional Impressions: Lupus Contusion of multiple sites of lower extremity ER Course Patient is a 54-year-old female presented after increased pain after fall. Differential diagnosis include was not limited to pulmonary embolism, hemorrhage , fracture among others. Because of complexity of patient's case laboratory tests and imaging studies were ordered. Patient was noted to have adequate laboratory testing without evidence of coagulopathy. CT imaging of the head showed no evidence of acute intracranial pathology. See radiology report for full details. Patient is unlikely to be taking Coumadin at this time. CT angiogram of the chest showed no evidence of acute fracture or pulmonary embolism. See radiology report for full details. Patient was given pain medications emergency department. She is noted to have some improvement. There is did not appear to be any evidence of pulmonary embolism. Patient was noted to be ambulatory with a steady gait. Patient given steroids as well as pain medication to what appears to be a flare of her lupus. She appears to be stable for outpatient follow-up with her primary care physician. Patient was given prescription for pain medications. She advised to continue taking her medications as previously prescribed. Labs Test 07/16/19 19:45 07/17/19 00:02 White Blood Count 7.1 K/UL (4.8-10.8) Red Blood Count 4.48 M/UL (4.20-5.40) Hemoglobin 12.1 G/DL (12.0-16.0) Hematocrit 38.5 % (37.0-47.0) Mean Corpuscular Volume 86 FL (80-99) Mean Corpuscular Hemoglobin 26.9 PG (27.0-31.0) Mean Corpuscular Hemoglobin Concent 31.4 G/DL (32.0-36.0) Red Cell Distribution Width 15.2 % (11.6-14.8) Platelet Count 300 K/UL (150-450) Mean Platelet Volume 7.4 FL (6.5-10.1) Neutrophils (%) (Auto) 66.0 % (45.0-75.0) Lymphocytes (%) (Auto) 23.2 % (20.0-45.0) Monocytes (%) (Auto) 5.8 % (1.0-10.0) Eosinophils (%) (Auto) 3.7 % (0.0-3.0) Basophils (%) (Auto) 1.2 % (0.0-2.0) Prothrombin Time 10.1 SEC (9.30-11.50) Prothromb Time International Ratio 0.9 (0.9-1.1) Activated Partial Thromboplast Time 28 SEC (23-33) Sodium Level 141 MMOL/L (136-145) Potassium Level 3.3 MMOL/L (3.5-5.1) Chloride Level 107 MMOL/L (98-107) Carbon Dioxide Level 27 MMOL/L (21-32) Anion Gap 7 mmol/L (5-15) Blood Urea Nitrogen 14 mg/dL (7-18) Creatinine 1.1 MG/DL (0.55-1.30) Estimat Glomerular Filtration Rate > 60 mL/min (>60) Glucose Level 113 MG/DL (74-106) Calcium Level 10.6 MG/DL (8.5-10.1) Total Bilirubin 0.3 MG/DL (0.2-1.0) Aspartate Amino Transf (AST/SGOT) 14 U/L (15-37) Alanine Aminotransferase (ALT/SGPT) 29 U/L (12-78) Alkaline Phosphatase 90 U/L (46-116) Pro-B-Type Natriuretic Peptide 29 pg/mL (0-125) Total Protein 7.8 G/DL (6.4-8.2) Albumin 3.2 G/DL (3.4-5.0) Globulin 4.6 g/dL Albumin/Globulin Ratio 0.7 (1.0-2.7) Thyroid Stimulating Hormone (TSH) 0.941 uiU/mL (0.358-3.740) Urine Color Pale yellow Urine Appearance Clear Urine pH 7 (4.5-8.0) Urine Specific [place] 1.010 (1.005-1.035) Urine Protein 1+ (NEGATIVE) Urine Glucose (UA) Negative (NEGATIVE) Urine Ketones Negative (NEGATIVE) Urine Blood Negative (NEGATIVE) Urine Nitrite Negative (NEGATIVE) Urine Bilirubin Negative (NEGATIVE) Urine Urobilinogen Normal MG/DL (0.0-1.0) Urine Leukocyte Esterase Negative (NEGATIVE) Urine RBC 0-2 /HPF (0 - 2) Urine WBC 0-2 /HPF (0 - 2) Urine Squamous Epithelial Cells Few /LPF (NONE/OCC) Urine Bacteria Occasional /HPF (NONE) Last Vital Signs Date Time Temp Pulse Resp B/P (MAP) Pulse Ox O2 Delivery O2 Flow Rate FiO2 07/16/19 21:34 21 07/16/19 21:28 87 18 97 Room Air 07/16/19 19:17 97.7 107/62 Status: improved Disposition: HOME, SELF-CARE Condition: Stable Scripts Hydrocodone Bit/Acetaminophen 5-325* (NORCO 5-325*) 1 Each Tablet 1 TAB ORAL Q4H PRN for For Pain, #12 TAB 0 Refills Prov: Amilcar Tompkins MD 07/16/19 Prednisone* (PREDNISONE*) 20 Mg Tablet 40 MG ORAL DAILY, #10 TAB Prov: Amilcar Tompkins MD 07/16/19 Referrals: [facility],REFERR[facility] (PCP) Amilcar Tompkins MD Jul 16, 2019 21:43
--- NOTE | 2019-07-16 22:00 | NUR ---
ED Nurse Note: Pt to CT
[2019-07-16] MEDS ORDERED: PREDNISONE20 MG ORAL ×2 (23:46→23:50)
--- NOTE | 2019-07-16 23:48 | Diagnostic Imaging Report ---
EXAM: CT Head Without Intravenous Contrast CLINICAL HISTORY: AMS TECHNIQUE: Axial computed tomography images of the head brain without intravenous contrast. CTDI is 60 mGy and DLP is 1316.2 mGy-cm. One or more of the following dose reduction techniques were used: automated exposure control, adjustment of the mA and or kV according to patient size, use of iterative reconstruction technique. COMPARISON: No relevant prior studies available. FINDINGS: Brain: Areas of mild decreased density in the white matter which are nonspecific but are likely related to mild small vessel ischemic changes. No hemorrhage. Ventricles: Unremarkable. Bones joints: Unremarkable. No acute fracture. Soft tissues: Unremarkable. Sinuses: Unremarkable as visualized. No acute sinusitis. Mastoid air cells: Unremarkable as visualized. No mastoid effusion. IMPRESSION: Areas of mild decreased density in the white matter which are nonspecific but are likely related to mild small vessel ischemic changes.
[2019-07-16] MEDS ORDERED: NORCO 5-325 TA1 EACH ORAL (23:50)
--- NOTE | 2019-07-17 00:06 | NUR ---
ED Nurse Note: Pt unable to urinate, straight cath per ERMD, urine sent to lab
[2019-07-17 00:30] LABS: APPEARANCE,URINE CLEAR; BILIRUBIN, URINE NEGATIVE (NEGATIVE); COLOR,URINE PALE YELLOW; GLUCOSE, URINE (UA) NEGATIVE (NEGATIVE); KETONES,URINE NEGATIVE (NEGATIVE); LEUKOCYTE ESTERASE ,URINE NEGATIVE (NEGATIVE); NITRITE,URINE NEGATIVE (NEGATIVE); PH,URINE 7 (4.5-8.0); PROTEIN,URINE 1+ (NEGATIVE); UROBILINOGEN,URINE NORMAL MG/DL (0.0-1.0)
--- NOTE | 2019-07-17 00:42 | Diagnostic Imaging Report ---
EXAM: CT Angiography Chest With Intravenous Contrast CLINICAL HISTORY: CP TECHNIQUE: Axial computed tomographic angiography images of the chest with intravenous contrast. CTDI is 21.2 mGy and DLP is 771.1 mGy-cm. One or more of the following dose reduction techniques were used: automated exposure control, adjustment of the mA and or kV according to patient size, use of iterative reconstruction technique. MIP reconstructed images were created and reviewed. Coronal and sagittal reformatted images were created and reviewed. COMPARISON: 10 09 17 FINDINGS: Pulmonary arteries: No evidence for pulmonary embolism. Aorta: The aorta is unremarkable. No thoracic aortic aneurysm. Lungs: Mild atelectasis at the dependent aspects of the lungs. No mass. Pleural space: Unremarkable. No significant effusion. No pneumothorax. Heart: Cardiomegaly. No significant pericardial effusion. No evidence of RV dysfunction. Bones joints: Mild degenerative changes of the thoracic spine. No acute fracture. No dislocation. Soft tissues: Unremarkable. Lymph nodes: Unremarkable. No enlarged lymph nodes. IMPRESSION: 1. No evidence for pulmonary embolism. 2. Cardiomegaly.
[2019-07-17 00:55] VITALS: BP 107/62
[2019-07-17] MEDS ORDERED: HYDROcodone/Acetamin 5/325 tab ORAL ONE (01:00)
== END 2019-07-17 00:55 | disposition home or self-care (01) ==
LOC: EMR 19:30
DX: M32.9 Systemic lupus erythematosus, unspecified (principal); R07.9 Chest pain, unspecified; M54.5 Low back pain; J45.909 Unspecified asthma, uncomplicated; Z88.0 Allergy status to penicillin; R30.0 Dysuria; Z79.01 Long term (current) use of anticoagulants; T14.8XXA Other injury of unspecified body region, initial encounter; W10.9XXA Fall (on) (from) unspecified stairs and steps, initial encounter; Y92.9 Unspecified place or not applicable; I51.7 Cardiomegaly
CPT/HCPCS: 36415; 70450; 71275; 80053; 81003; 83880; 84443; 85025; 85610; 85730; 93005; 94640; 96374; 96375; J2270; J2405; Q9967; Z7502; 99284; J7620; J8499

== ENCOUNTER 2019-09-28 18:07 | Emergency (ER) | payer OTHER ==
[~2019-09-28] VITALS: Ht 167.6 cm; Wt 120.2 kg
[2019-09-28 18:20] VITALS: BP 121/88
[2019-09-28] MEDS ORDERED: HYDROcodone/Acetamin 5/325 tab PO ONE (18:45)
[2019-09-28 19:20] VITALS: BP 116/68
--- NOTE | 2019-09-28 20:08 | Diagnostic Imaging Report ---
Indication: Pain, status post fall Technique: 3 views right foot Comparison: 07/14/2015 Findings: No acute fractures. No dislocations. There is mild bunion formation. The joint spaces are preserved. There are plantar and calcaneal spurs. No significant interim change Impression: No acute bony trauma This agrees with the preliminary interpretation provided overnight by [facility].
--- NOTE | 2019-09-28 20:09 | Diagnostic Imaging Report ---
Indication: Pain, status post fall Technique: 3 views of the right ankle Comparison: none Findings: Bony alignment is normal. No acute fractures. No dislocations. There are calcaneal and plantar spurs Impression: No acute bony trauma This agrees with the preliminary interpretation provided overnight by [facility] service.
--- NOTE | 2019-09-28 20:09 | Diagnostic Imaging Report ---
Indication: Pain, status post fall Technique: 3 views of the right knee Comparison: None Findings: There are degenerative changes of the patellofemoral joint. There are medial and lateral osteophytes. The lateral and medial joint compartment spaces are preserved. No acute fractures. No dislocations. No suprapatellar effusion Impression: Degenerative changes No acute bony trauma This agrees with the preliminary interpretation provided overnight by [facility] tel[facility]iology service.
[2019-09-28 20:20] VITALS: BP 140/79
--- NOTE | 2019-09-28 20:53 | Emergency Room Report ---
History of Present Illness General Chief Complaint: Multiple Trauma/Fall Source: Patient, Medical Record Present Illness HPI 54yo F with hx of lupus who presents to ER sp fall. she reported tripping and losing her balance 2 days ago. she fell onto her right knee, ankle and foot. pain is worse in foot and reported moderate swelling over anterior foot despite icing and using her home pain medication. Pt denies head injury or LOC. Allergies: Coded Allergies: PENICILLINS (Verified Allergy, Severe, Shortness of Breath, 10/09/17) Patient History PMH Narrative lupus, asthma Nursing Documentation-PMH Past Medical History: No History, Except For Hx Cardiac Problems: No Hx Hypertension: No - LUPUS, PE Hx Pacemaker: No Hx Asthma: Yes Hx COPD: Yes Hx Diabetes: No Hx Cancer: No Hx Gastrointestinal Problems: No Hx Dialysis: No History Of Psychiatric Problem: No Hx Neurological Problems: Yes - SLE Hx Cerebrovascular Accident: No Hx Seizures: No Review of Systems Constitutional: Denies: chills, fever Respiratory: Denies: cough, shortness of breath Cardiovascular: Denies: chest pain, palpitations Gastrointestinal: Denies: diarrhea, vomiting Genitourinary: Denies: hematuria, pain Musculoskeletal: Reports: joint pain; Denies: joint swelling Skin: Denies: rash, lesions Neurological: Denies: headache, dizziness Physical Exam Vital Signs Date Time Temp Pulse Resp B/P (MAP) Pulse Ox O2 Delivery O2 Flow Rate FiO2 09/28/19 18:20 98.5 85 18 121/88 100 Room Air Sp02 EP Interpretation: reviewed General Appearance: well appearing, no apparent distress, non-toxic Head: normocephalic, atraumatic Eyes: bilateral eye normal inspection ENT: hearing grossly normal, EOM grossly intact, moist mucus membranes Neck: supple Respiratory: lungs clear, normal breath sounds, no respiratory distress, speaking full sentences Cardiovascular #1: regular rate, rhythm, normal capillary refill Cardiovascular #2: 2+ radial (R), 2+ radial (L) Gastrointestinal: soft, non-distended Rectal: deferred Musculoskeletal: normal inspection, back normal, normal range of motion, moves extm spontaneously, no lower extremity edema, tender - tenderness of right knee , right foot and right ankle. , swelling - right foot, anteiror aspect. Neurologic: alert, motor strength/tone normal, grossly normal Psychiatric: mood/affect normal Skin: warm/dry, normal turgor Medical Decision Making Diagnostic Impression: Primary Impression: Right foot sprain ER Course right foot, ankle and knee pain sp fall. with mild edema to anterior to right foot. will do xrays and reassess Other X-Ray Diagnostic Results Other X-Ray Diagnostic Results : X-Ray ordered: X-ray foot, x-ray ankle, x-ray knee Interpretation: no dislocation, no soft tissue swelling, no fractures Last Vital Signs Date Time Temp Pulse Resp B/P (MAP) Pulse Ox O2 Delivery O2 Flow Rate FiO2 09/28/19 20:20 98.1 72 18 140/79 100 Room Air Reevaluation Impression xrays wnl. no signs of fracture. pt placed in DMITRIY and discharged with follow up with orthopedist. Disposition: HOME, SELF-CARE Condition: Stable Scripts Hydrocodone Bit/Acetaminophen 5-325* (NORCO 5-325*) 1 Each Tablet 1 TAB ORAL Q6H PRN for For Pain, #10 TAB 0 Refills Prov: Rangel Oswald M.D. 09/28/19 Referrals: NON PHYSICIAN (PCP) Orthopedic Urgent Care Patient Instructions: Ankle Replacement, Care After, Foot Sprain Additional Instructions: Please follow-up with your primary care doctor and orthopedist in 1 to 2 days for reevaluation Rangel Oswald M.D. Sep 28, 2019 20:53
[2019-09-28] MEDS ORDERED: NORCO 5-325 TA1 EACH ORAL (21:04)
[2019-09-28 21:44] VITALS: BP 121/72
== END 2019-09-28 21:40 | disposition home or self-care (01) ==
LOC: EMR 18:58
DX: S93.601A Unspecified sprain of right foot, initial encounter (principal); Z88.0 Allergy status to penicillin; Z86.711 Personal history of pulmonary embolism; X58.XXXA Exposure to other specified factors, initial encounter; Y92.9 Unspecified place or not applicable
CPT/HCPCS: 73562; 73610; 73630; 81025; Z7502; 99284

== ENCOUNTER 2019-10-29 17:40 | Emergency (ER) | payer OTHER ==
[~2019-10-29] VITALS: Ht 165.1 cm; Wt 117.5 kg
[2019-10-29 17:50] VITALS: BP 146/76
--- NOTE | 2019-10-29 17:50 | NUR ---
ED Nurse Note: pt walked in with assist from home due to abdominal discomfort x4 days and both legs pain from ground level fall from 2 days ago. pt aao x4 and non ambulatory due to bilateral leg pain but able to pivot to transfer at this moment. skin clean and intact and no visible wound or bruise noted. calm and cooperative. no cardiac or pulmonary distress noted at this time. pt is in gown.
--- NOTE | 2019-10-29 18:00 | NUR ---
ED Nurse Note: distended abdoman notified and ERMD made aware.
[2019-10-29] MEDS ORDERED: Omnipaque-300 100ml vial INJ PRN (18:15)
--- NOTE | 2019-10-29 18:21 | Diagnostic Imaging Report ---
EXAM: XR Left Knee, 3 Views CLINICAL HISTORY: TRAUMA TECHNIQUE: Three views of the left knee. COMPARISON: X-ray dated 09/28/2019 FINDINGS: Bones/joints: No acute fracture or traumatic malalignment. Tricompartment degenerative changes. Soft tissues: Unremarkable. IMPRESSION: No acute fracture or traumatic malalignment.
--- NOTE | 2019-10-29 18:26 | Diagnostic Imaging Report ---
EXAM: XR Right Foot Complete, 3 or More Views CLINICAL HISTORY: TRAUMA TECHNIQUE: Frontal, lateral and oblique views of the right foot. COMPARISON: No relevant prior studies available. FINDINGS: Bones/joints: Question acute fracture of the distal shaft of the proximal phalanx. The first digit with intra-articular extension. Small calcaneal heel spur. No dislocation. Soft tissues: Moderate edema seen within the soft tissues of the dorsal foot. No radiopaque foreign body. IMPRESSION: 1. Question acute fracture of the distal shaft of the proximal phalanx. The first digit with intra-articular extension. 2. Moderate edema seen within the soft tissues of the dorsal foot.
--- NOTE | 2019-10-29 18:35 | NUR ---
ED Nurse Note: x-ray at bedside.
--- NOTE | 2019-10-29 18:35 | NUR ---
ED Nurse Note: called lab for blood draw.
--- NOTE | 2019-10-29 18:44 | Emergency Room Report ---
History of Present Illness General Chief Complaint: Multiple Trauma/Fall Source: Patient Present Illness HPI Disclaimer: Please note that this report is being documented using DRAGON technology. This can lead to erroneous entry secondary to incorrect interpretation by the dictating instrument. HPI: 52-year-old female with history of lupus anticoagulant disorder presents for evaluation after a fall 3 days ago as well as abdominal pain. Patient states that she felt her left knee buckled while walking the other day falling forward onto her left knee causing moderate pain and swelling and difficulty ambulating over the past 3 days. Is also in the emergency department recently for twisting her right foot and ankle stepping into a manhole accidentally. On her most recent fall which she struck her knee she states that she also fell forward hitting her chin against the ground. There was no loss of conscious, no seizure, no headache, no neck or back pain. States she had some pain in the jaw but is still able to speak and eat without difficulty. Also notes some pain over the bridge of the nose but denies any swelling, no black eyes, no changes in her vision and no swelling of the face. Secondly, the patient is complaining of abdominal distention. She notes generalized pain and discomfort and has been constipated for approximately 5 days. Reports no bowel movements but is still moving gas. History of constipation in the past. Denies vomiting , diarrhea, dysuria or hematuria. Is not taking any medications. No other injury or complaints reported. PMH: Lupus anticoagulant disorder, asthma PSH: Denies Allergies: Penicillin Social Hx: Denies Allergies: Coded Allergies: PENICILLINS (Verified Allergy, Severe, Shortness of Breath, 10/09/17) Nursing Documentation-PMH Past Medical History: No History, Except For Hx Cardiac Problems: No Hx Hypertension: No - LUPUS, PE Hx Pacemaker: No Hx Asthma: Yes Hx COPD: Yes Hx Diabetes: No Hx Cancer: No Hx Gastrointestinal Problems: No Hx Dialysis: No Hx Neurological Problems: Yes - SLE Hx Cerebrovascular Accident: No Hx Seizures: No Review of Systems All Other Systems: negative except mentioned in HPI Physical Exam Vital Signs Date Time Temp Pulse Resp B/P (MAP) Pulse Ox O2 Delivery O2 Flow Rate FiO2 10/29/19 17:50 98.2 84 19 146/76 100 Room Air General: Awake and alert, no acute distress HEENT: NC/AT. EOMI. PERRLA. No midface or mandible instability. Mild tenderness over the bridge of the nose without deformity. No periorbital edema or ecchymosis. No TMJ tenderness. Full range of motion in the mandible. No deformity or focal tenderness. Poor dentition but no obvious injury. Neck: Supple, trachea midline Chest Wall: No tenderness, no deformity Cardiovascular: RRR. S1 and S2 normal. No murmur appreciated Resp: Normal work of breathing. No cough, wheezing or crackles appreciated Abdomen: Abdomen is soft, nondistended. Abdomen is obese and distended. Generalized tenderness without focal tenderness. No rebound. Skin: Intact. No abrasions, laceration or rash over the exposed skin MSK: Normal tone and bulk. Moving all extremities. No obvious deformity. Tenderness palpation over the left patella. Able to flex and extend the knee. Patella is in anatomic position. No laxity on varus or valgus testing. Mild edema circumferentially. 2+ PT and DP pulses distally. Bilateral lower extremity edema. Neuro: Awake and alert. Mentating appropriately. Medical Decision Making Diagnostic Impression: Primary Impression: Fracture of phalanx of right foot, closed Additional Impressions: Contusion of left knee Constipation Abdominal distension Abdominal pain ER Course 54-year-old female presents for evaluation of left knee pain after a fall 3 days ago, persistent right ankle pain after a fall several weeks ago, jaw and facial pain as well as abdominal distention and constipation. Patient does not show signs of facial bone or mandible fracture and she is able to speak in full sentences, no edema, only mild tenderness and no palpable deformities. There is tenderness in the patella will obtain x-rays. We will also re-x-ray the right ankle given the repeat fall. Also obtain an x-ray of the abdomen as well as belly labs though suspect constipation is the main culprit which the patient agrees. Give IV fluids and pain medication. Laboratory Tests Test 10/29/19 16:30 10/29/19 19:00 Urine Color Pale yellow Urine Appearance Clear Urine pH 6 (4.5-8.0) Urine Specific [place] 1.015 (1.005-1.035) Urine Protein Negative (NEGATIVE) Urine Glucose (UA) Negative (NEGATIVE) Urine Ketones Negative (NEGATIVE) Urine Blood 1+ (NEGATIVE) H Urine Nitrite Negative (NEGATIVE) Urine Bilirubin 2+ (NEGATIVE) H Urine Ictotest Negative (NEGATIVE) Urine Urobilinogen Normal MG/DL (0.0-1.0) Urine Leukocyte Esterase Negative (NEGATIVE) Urine RBC 2-4 /HPF (0 - 2) H Urine WBC 0 /HPF (0 - 2) Urine Squamous Epithelial Cells Occasional /LPF Urine Bacteria Few /HPF (NONE) White Blood Count 7.2 K/UL (4.8-10.8) Red Blood Count 4.37 M/UL (4.20-5.40) Hemoglobin 12.4 G/DL (12.0-16.0) Hematocrit 38.8 % (37.0-47.0) Mean Corpuscular Volume 89 FL (80-99) Mean Corpuscular Hemoglobin 28.4 PG (27.0-31.0) Mean Corpuscular Hemoglobin Concent 32.0 G/DL (32.0-36.0) Red Cell Distribution Width 15.8 % (11.6-14.8) H Platelet Count 280 K/UL (150-450) Mean Platelet Volume 7.6 FL (6.5-10.1) Neutrophils (%) (Auto) 60.4 % (45.0-75.0) Lymphocytes (%) (Auto) 28.1 % (20.0-45.0) Monocytes (%) (Auto) 5.3 % (1.0-10.0) Eosinophils (%) (Auto) 4.4 % (0.0-3.0) H Basophils (%) (Auto) 1.8 % (0.0-2.0) Sodium Level 137 MMOL/L (136-145) Potassium Level 3.6 MMOL/L (3.5-5.1) Chloride Level 104 MMOL/L (98-107) Carbon Dioxide Level 24 MMOL/L (21-32) Anion Gap 9 mmol/L (5-15) Blood Urea Nitrogen 11 mg/dL (7-18) Creatinine 0.8 MG/DL (0.55-1.30) Estimate Glomerular Filtration Rate > 60 mL/min (>60) Glucose Level 115 MG/DL (74-106) H Calcium Level 10.4 MG/DL (8.5-10.1) H Total Bilirubin 0.2 MG/DL (0.2-1.0) Aspartate Amino Transferase (AST) 15 U/L (15-37) Alanine Aminotransferase (ALT) 27 U/L (12-78) Alkaline Phosphatase 96 U/L (46-116) Total Protein 8.0 G/DL (6.4-8.2) Albumin 3.2 G/DL (3.4-5.0) L Globulin 4.8 g/dL Albumin/Globulin Ratio 0.7 (1.0-2.7) L Lipase 169 U/L (73-393) Other X-Ray Diagnostic Results Other X-Ray Diagnostic Results #1: X-Ray ordered: Left knee # of Views/Limited Vs Complete: Complete Indication: Pain EP Interpretation: Yes Interpretation: no dislocation, no soft tissue swelling, no fractures Impression: No acute disease Electronically Signed by: Electronically signed by Dr. Tang Michaud Other X-Ray Diagnostic Results #2: X-Ray ordered: Right foot # of Views/Limited Vs Complete: Complete Indication: Pain EP Interpretation: Yes Interpretation: no dislocation, other - poss oblique fracture of the proximal phalanx first digit Impression: Other - Possible oblique fracture of the first digit proximal phalanx Electronically Signed by: Electronically signed by Dr. Tang Michaud Other X-Ray Diagnostic Results #3: X-Ray ordered: Abdomen # of Views/Limited Vs Complete: 1 View Indication: Swelling Interpretation: nonspecific bowel gas, no sbo Impression: Other - Significant constipation stool in the rectum Electronically Signed by: Electronically signed by Dr. Tang Michaud Reevaluation Time: 20:21 Last Vital Signs Date Time Temp Pulse Resp B/P (MAP) Pulse Ox O2 Delivery O2 Flow Rate FiO2 10/29/19 17:53 98.1 85 19 104/70 (81) 98 Room Air Reevaluation Impression CT concerning for an oblique fracture of the proximal phalanx first digit on the right foot. This may be an acute injury from the patient's recent fall over a more remote injury from a previous fall. Will be placed in a postop shoe. No evidence of fracture dislocation on the left knee will apply Fabián bandage for comfort and stability. Abdominal x-ray does not show obstruction but does show moderate stool burden. Her abdominal distention discomfort likely secondary constipation. She states she has not had an adequate bowel movement in 3 to 4 days. She is on MiraLAX and docusate but we will add magnesium citrate and enema to be performed at home. She can follow-up with PMD and gastroenterology for further care and work-up of constipation. She will be given crutches and follow-up with orthopedic surgery for her orthopedic injuries. Discussed reasons to return to the emergency department. She understands and agrees with this treatment plan. Disposition: HOME, SELF-CARE Condition: Stable Scripts Magnesium Citrate (MAGNESIUM CITRATE) 296 Ml Solution 296 ML PO BID for 2 Days, #1000 ML Prov: Tang Michaud MD 10/29/19 Na GabyM-B/Taryn GriffinDi-Ba* (FLEET ENEMA*) 133 Ml Enema 133 ML RECTAL DAILY for 1 Day, #133 ML 0 Refills Prov: Tang Michaud MD 10/29/19 Referrals: [facility],REFERR[facility] (PCP) Tang Michaud MD Oct 29, 2019 18:44
--- NOTE | 2019-10-29 19:04 | NUR ---
ED Nurse Note: blood and urine sent to lab.
[2019-10-29 19:07] LABS: BASOPHILS % (AUTO) 1.8 % (0.0-2.0); EOSINOPHILS % (AUTO) 4.4 % (0.0-3.0); HEMATOCRIT 38.8 % (37.0-47.0); HEMOGLOBIN 12.4 G/DL (12.0-16.0); LYMPHOCYTES % (AUTO) 28.1 % (20.0-45.0); MEAN CORPUSCULAR VOLUME 89 FL (80-99); MONOCYTES % (AUTO) 5.3 % (1.0-10.0); NEUTROPHILS % (AUTO) 60.4 % (45.0-75.0); PLATELET COUNT 280 K/UL (150-450); RED BLOOD COUNT 4.37 M/UL (4.20-5.40); RED CELL DISTRIBUTION WIDTH 15.8 % (11.6-14.8); WHITE BLOOD COUNT 7.2 K/UL (4.8-10.8)
[2019-10-29 19:10] LABS: APPEARANCE,URINE CLEAR; BILIRUBIN, URINE 2+ (NEGATIVE); COLOR,URINE PALE YELLOW; GLUCOSE, URINE (UA) NEGATIVE (NEGATIVE); KETONES,URINE NEGATIVE (NEGATIVE); LEUKOCYTE ESTERASE ,URINE NEGATIVE (NEGATIVE); NITRITE,URINE NEGATIVE (NEGATIVE); PH,URINE 6 (4.5-8.0); PROTEIN,URINE NEGATIVE (NEGATIVE); UROBILINOGEN,URINE NORMAL MG/DL (0.0-1.0)
[2019-10-29] MEDS ORDERED: Ketorolac 30mg Inj IV ONE (19:15)
[2019-10-29 19:16] LABS: ANION GAP 9 mmol/L (5-15); BLOOD UREA NITROGEN 11 mg/dL (7-18); CALCIUM 10.4 MG/DL (8.5-10.1); CARBON DIOXIDE 24 MMOL/L (21-32); CHLORIDE 104 MMOL/L (98-107); CREATININE 0.8 MG/DL (0.55-1.30); POTASSIUM 3.6 MMOL/L (3.5-5.1); SODIUM 137 MMOL/L (136-145)
[2019-10-29 19:20] LABS: ALANINE AMINOTRANSFERASE 27 U/L (12-78); ALBUMIN 3.2 G/DL (3.4-5.0); ALBUMIN/GLOBULIN RATIO 0.7 (1.0-2.7); ALKALINE PHOSPHATASE 96 U/L (46-116); ASPARTATE AMINO TRANSFERASE 15 U/L (15-37); BILIRUBIN,TOTAL 0.2 MG/DL (0.2-1.0)
--- NOTE | 2019-10-29 19:21 | NUR ---
HAND-OFF: Report given to EMMA Clifford. no orders to carry at this moment.
--- NOTE | 2019-10-29 19:30 | NUR ---
ED Nurse Note: Recieved reprot to resume care, pt in bed awake, alert and oriented x 4, pt has patent IV line and recently medicted for foot pain, pt continues to report pain at 9/10 and asking for morphine, MD aware, pt also here for constipation due to narcotic use, pt denies cp, sob or any other complaints, waiting for results and disposition.
--- NOTE | 2019-10-29 19:52 | Diagnostic Imaging Report ---
EXAM: XR Abdomen, 2 Views CLINICAL HISTORY: ABD DIST TECHNIQUE: Frontal view of the abdomen/pelvis with upright view of the abdomen. COMPARISON: No relevant prior studies available. FINDINGS: Intraperitoneal space: No free air. Gastrointestinal tract: Unremarkable. No dilation. Bones/joints: Unremarkable. IMPRESSION: Normal abdominal x-rays.
[2019-10-29 20:00] VITALS: BP 129/74
[2019-10-29] MEDS ORDERED: MAGNESIUM CITR296 M1 PO (20:16)
[2019-10-29] MEDS ORDERED: FLEET ENEMA133 ML RECTAL (20:16)
[2019-10-29] MEDS ORDERED: Morphine Sulfate 2mg/ml Inj(IV/IM USE ONLY) ONE (20:39)
[2019-10-29] MEDS ORDERED: Morphine Sulfate 2mg/ml Inj(IV/IM USE ONLY) IVP ONE (20:45)
[2019-10-29 20:50] VITALS: BP 129/74
== END 2019-10-29 20:50 | disposition home or self-care (01) ==
LOC: EMR 18:14
DX: S92.511A Displaced fracture of proximal phalanx of right lesser toe(s), initial encounter for closed fracture (principal); S80.02XA Contusion of left knee, initial encounter; K59.00 Constipation, unspecified; R14.0 Abdominal distension (gaseous); R10.84 Generalized abdominal pain; J45.909 Unspecified asthma, uncomplicated; J44.9 Chronic obstructive pulmonary disease, unspecified; M32.9 Systemic lupus erythematosus, unspecified; W01.10XA Fall on same level from slipping, tripping and stumbling with subsequent striking against unspecified object, initial encounter; Y93.01 Activity, walking, marching and hiking; Y92.9 Unspecified place or not applicable; Z91.81 History of falling; Z88.0 Allergy status to penicillin
CPT/HCPCS: 36415; 73562; 73630; 74018; 80053; 81003; 83690; 85025; 96374; 96375; J1885; J2270; Z7502; 99284